=== PATIENT | female | born 1995 | race Hispanic/Latino ===

== ENCOUNTER 2021-03-18 21:21 | Emergency (ER) | payer OTHER ==
[~2021-03-18] VITALS: Ht 162.6 cm; Wt 66.9 kg
[2021-03-18 21:22] VITALS: BP 135/85
[2021-03-19] MEDS ORDERED: OMEPRAZOLE 20 MG CAP PO ONE (00:35)
[2021-03-19] MEDS ORDERED: SUCRALFATE 1 GM TAB PO ONE (00:35)
[2021-03-19] MEDS ORDERED: GI COCKTAIL 50ML BTL(HYOSCYAMINE/MAALOX/LIDOCAINE VISCOUS)(1:3:1) PO ONE (00:35)
[2021-03-19 01:06] LABS: BASO # 0.1 10^3/uL (0.0-0.2); BASO % 0.9 % (0.0-1.0); EOS # 0.5 10^3/uL (0.0-0.5); HEMOGLOBIN 12.6 g/dl (12.0-15.5); MEAN CORPUSCULAR HEMOGLOBIN 29.9 pg (27.0-33.0); MEAN CORPUSCULAR HGB CONC 34.1 g/dl (32.0-36.5); MEAN CORPUSCULAR VOLUME 87.7 fl (80.0-96.0); MONO # 0.7 10^3/uL (0.0-0.8); MONO % 9.9 % (2.0-8.0); NEUTROPHILS # 2.8 10^3/uL (1.5-8.5); NEUTROPHILS % 38.9 % (36.0-66.0); PLATELET COUNT, AUTOMATED 246 10^3/uL (150-450); RED BLOOD COUNT 4.22 10^6/uL (4.00-5.40); WHITE BLOOD COUNT 7.1 10^3/uL (4.0-10.0)
[2021-03-19 01:31] LABS: CK-MB VALUE MASS < 1.0 NG/ML (<3.6); CPK CREATINE PHOSPHOKINASE 81 U/L (26-192); MB/CK RELATIVE INDEX 1.23 (< OR =4); TROPONIN I < 0.02 NG/ML (< 0.10)
[2021-03-19 01:44] LABS: RSV AMPLIFICATION NEGATIVE (NEGATIVE)
[2021-03-19] MEDS ORDERED: CARA1TAB6 PO (02:00)
[2021-03-19] MEDS ORDERED: OMEP40CA4 PO (02:00)
--- NOTE | 2021-03-19 04:38 | REPVR ---
PROCEDURE INFORMATION: Exam: XR Chest Exam date and time: 03/19/2021 1:27 AM Age: 25 years old Clinical indication: Shortness of breath; Additional info: Chest tightness, SOB TECHNIQUE: Imaging protocol: XR of the chest. Views: 2 views. COMPARISON: No relevant prior studies available. FINDINGS: Lungs: Unremarkable. No consolidation. Pleural spaces: Unremarkable. No pleural effusion. No pneumothorax. Heart/Mediastinum: Unremarkable. No cardiomegaly. Bones/joints: Unremarkable. IMPRESSION: No acute findings. Electronically signed by: Belen Schultz On 03/19/2021 04:38:27 AM
== END 2021-03-19 02:14 | disposition home or self-care (01) ==
LOC: M ED 21:21
DX: R07.89 Other chest pain (principal); R06.02 Shortness of breath; Z79.899 Other long term (current) drug therapy

== ENCOUNTER → 2021-05-31 | Outpatient (CLI) | payer OTHER ==
[~2021-05-31] MED LIST: CARA1TAB6 PO; E-Z-GAS II EFFERVESCENT PACKET (SODIUM BICARB./CITRIC ACID/SIMETHICONE) As Ordered ONE; E-Z-HD 98% w/w 340GM SUSP BTL As Ordered ONE; E-Z-PAQUE 96% w/w SUSP 176GM BTL As Ordered ONE; OMEP40CA4 PO
== END ==
LOC: M RAD 07:36
PROVIDERS: ATTEND Family Medicine
DX: R10.9 Unspecified abdominal pain (principal)